=== PATIENT | female | born 1950 | race Caucasian/White ===

== ENCOUNTER 2018-05-26 14:18 | Outpatient (CLI) | payer MEDICARE ==
--- NOTE | 2018-05-26 15:20 | BD ---
BONE DENSITOMETRY USING DEXA: HISTORY: Postmenopausal screening for osteoporosis. FINDINGS: Lumbar Spine: BMD (g/cm2) L1 0.784 T-Score: -1.9 Z-Score: -0.2 L2 1.093 T-Score: 0.6 Z-Score: 2.5 L3 1.137 T-Score: 0.5 Z-Score: 2.4 L4 0.919 T-Score: -1.3 Z-Score: 0.7 L1-L4 0.974 T-Score: -0.7 Z-Score: 1.2 Femoral Neck: 0.522 T-Score: -2.9 Z-Score: 1.3 Total Femur: 0.682 T-Score: -2.1 Z-Score: 1.8 Impression: Osteoporosis. POS: [facility]
== END 2018-05-26 14:19 | disposition home or self-care (01) ==
LOC: BICMAMMO 14:18
PROVIDERS: ATTEND Internal Medicine
DX: Z12.31 Encounter for screening mammogram for malignant neoplasm of breast (principal); M85.80 Other specified disorders of bone density and structure, unspecified site; M81.0 Age-related osteoporosis without current pathological fracture; R92.1 Mammographic calcification found on diagnostic imaging of breast
CPT/HCPCS: 77063; 77067; 77080